=== PATIENT | female | born 1980 | race Caucasian/White ===

== ENCOUNTER 2022-09-03 00:01 | Inpatient (IN) | payer BC, MEDICAID ==
[~2022-09-03] VITALS: Ht 165.1 cm; Wt 59.0 kg
[~2022-09-03 00:01] MED LIST: PREN1TAB81 PO
[2022-09-03] MEDS ORDERED: LORAZEPAM 2 MG/1 ML VIAL ONE ×2 (00:11→00:42)
[2022-09-03] MEDS ORDERED: IV NORMAL SALINE 1000 ML BAG IV ONE (00:15)
[2022-09-03] MEDS ORDERED: LORAZEPAM 2 MG/1 ML VIAL IV ONE ×2 (00:15)
[2022-09-03 00:25] LABS: HEMATOCRIT 41.3 % (31.2-41.9); MEAN CORPUSCULAR HEMOGLOBIN 30.2 uug (24.7-32.8); PLATELET COUNT (AUTO) 306 K/uL (179-408)
[2022-09-03 00:42] LABS: *BILIRUBIN,URIN NEGATIVE (NEGATIVE); *BLOOD, URINE 2+ (NEGATIVE); *COLOR,URINE YELLOW (YELLOW); *KETONES,URINE NEGATIVE (NEGATIVE); *UROBILINOGEN,URINE 0.2 E.U./dl (NORMAL); LEUKOCYTE ESTERASE ,URINE 2+ (NEGATIVE); NITRITE, URINE NEGATIVE (NEGATIVE); UGLUCOSE NEGATIVE (NEGATIVE)
[2022-09-03 00:51] LABS: ETHANOL 195 MG/DL (0-0)
[2022-09-03 00:52] LABS: ALANINE AMINOTRANSFERASE 33 U/L (14-59); ALKALINE PHOSPHATASE 77 U/L (50-136); ASPARTATE AMINOTRANSFERASE 27 U/L (15-37); BILIRUBIN,DIRECT 0.1 mg/dL (0.0-0.2); BILIRUBIN,TOTAL 0.2 mg/dL (0.2-1.0); CARBON DIOXIDE 24 mmol/L (21-32); CHLORIDE 103 mmol/L (98-107); CREATINE KINASE, TOTAL 40 U/L (26-192); CREATININE 0.8 mg/dL (0.6-1.3); GLUCOSE 110 mg/dL (74-106); POTASSIUM 3.2 mmol/L (3.5-5.1); TOTAL PROTEIN, SERUM 8.2 g/dL (6.4-8.2); UREA NITROGEN, BLOOD 10 mg/dL (7-18)
[2022-09-03 00:53] LABS: *AMPHETAMINE, URINE NEGATIVE (NEGATIVE); *CANNABINOID, URINE NEGATIVE (NEGATIVE); *COCCAINE, URINE NEGATIVE (NEGATIVE); *PHENCYCLIDINE SCREEN,URINE NEGATIVE (NEGATIVE)
[2022-09-03 00:56] LABS: ACETAMINOPHEN < 2.0 ug/mL (10-30)
[2022-09-03 00:59] LABS: THYROID STIMULATING HORMONE 5.353 mIU/mL (0.358-3.740)
[2022-09-03 01:01] LABS: *CLARITY,URINE SLIGHTLY CLOUDY (CLEAR)
[2022-09-03 01:04] LABS: RBC,URINE 50-80 /HPF (0-3); WBC,URINE 20-50 /HPF (0-3)
[2022-09-03 01:05] LABS: BACTERIA,URINE MANY /HPF (NONE SEEN); SQUAMOUS EPITHELIAL CELL,UR FEW /HPF (NONE SEEN)
[2022-09-03] MEDS ORDERED: CEFTRIAXONE /D5W 50ML IVPB **ER PYXIS IV ONE (01:27)
[2022-09-03] MEDS ORDERED: CEFTRIAXONE 1 G in IV DEXTROSE 5% 50 ML IV ONE (01:30)
[2022-09-03] MEDS ORDERED: POTASSIUM CHLORIDE 20 MEQ TAB.PRT.SR PO ONE (02:00)
[2022-09-03] MEDS ORDERED: MAGNESIUM SULFATE/D5W 100 ML ONE ×2 (02:03→02:11)
[2022-09-03] MEDS ORDERED: POTASSIUM CHLORIDE 20 MEQ TAB.PRT.SR ONE (02:03)
[2022-09-03] MEDS: MAGNESIUM SULFATE/D5W 100 ML IV SCH ×2 (02:15→03:00)
[2022-09-03] MEDS ORDERED: IV NS 1000 ML 1,000 ML IV ONE (04:30)
[2022-09-03] MEDS: POTASSIUM CHLORIDE 50 ML IV SCH ×2 (05:00→06:50)
[2022-09-03] MEDS ORDERED: POTASSIUM CHLORIDE 50 ML ONE ×2 (05:24→05:51)
[2022-09-03] MEDS ORDERED: OMEP40CA21 PO (06:02)
[2022-09-03] MEDS ORDERED: CITA10TA17 PO (06:02)
[2022-09-03] MEDS ORDERED: ONDANSETRON 4 MG/2 ML VIAL IV PRN (06:15)
[2022-09-03] MEDS ORDERED: REMEDY ESSENTIAL ZINC PASTE 113 GM TP PRN (06:15)
[2022-09-03] MEDS ORDERED: ACETAMINOPHEN 325 MG TABLET PO PRN (06:15)
[2022-09-03 06:32] LABS: HEMATOCRIT 35.3 % (31.2-41.9); MEAN CORPUSCULAR HEMOGLOBIN 30.1 uug (24.7-32.8); MEAN CORPUSCULAR VOLUME 92.6 fL (75.5-95.3); PLATELET COUNT (AUTO) 234 K/uL (179-408)
[2022-09-03 06:54] LABS: BILIRUBIN,TOTAL 0.1 mg/dL (0.2-1.0); CREATININE 0.6 mg/dL (0.6-1.3); MAGNESIUM 2.1 mg/dL (1.8-2.4); PHOSPHOROUS 2.9 mg/dL (2.5-4.9); POTASSIUM 4.3 mmol/L (3.5-5.1); TOTAL PROTEIN, SERUM 6.4 g/dL (6.4-8.2)
[2022-09-03 07:02] LABS: THYROID STIMULATING HORMONE 2.895 mIU/mL (0.358-3.740)
[2022-09-03 08:02] VITALS: BP 98/59
[2022-09-03] MEDS: levoFLOXacin 500 MG/D5W 500 MG in PREMIXED 1 EACH IV SCH (09:56)
[2022-09-03] MEDS: PANTOPRAZOLE SODIUM 40 MG VIAL IV SCH (09:56)
[2022-09-03] MEDS: IV D5 1/2 NS 1000 ML 1,000 ML IV PRN ×2 (09:59→18:44)
[2022-09-03 12:00] VITALS: BP 104/60
[2022-09-03 16:00] VITALS: BP 104/59
[2022-09-03 20:00] VITALS: BP 99/60
[2022-09-04] VITALS: BP 97/55
[2022-09-04] MEDS: IV D5 1/2 NS 1000 ML 1,000 ML IV PRN ×3 (03:35→22:40)
[2022-09-04 06:37] VITALS: BP 100/59
[2022-09-04 07:50] LABS: HEMATOCRIT 35.5 % (31.2-41.9); MEAN CORPUSCULAR HEMOGLOBIN 30.5 uug (24.7-32.8); MEAN CORPUSCULAR VOLUME 92.2 fL (75.5-95.3); PLATELET COUNT (AUTO) 237 K/uL (179-408)
[2022-09-04 08:00] VITALS: BP 95/52
[2022-09-04 08:09] LABS: CREATININE 0.6 mg/dL (0.6-1.3); POTASSIUM 3.8 mmol/L (3.5-5.1)
[2022-09-04] MEDS: levoFLOXacin 500 MG/D5W 500 MG in PREMIXED 1 EACH IV SCH (09:02)
[2022-09-04] MEDS: PANTOPRAZOLE SODIUM 40 MG VIAL IV SCH (09:05)
[2022-09-04 13:00] VITALS: BP 101/57
[2022-09-04] MEDS: CITALOPRAM 10 MG TABLET PO SCH (14:27)
[2022-09-04 15:57] VITALS: BP 112/61
[2022-09-04 19:40] VITALS: BP 120/73
[2022-09-05] MEDS ORDERED: PANTOPRAZOLE SODIUM 40 MG TABLET.DR PO SCH (07:00)
[2022-09-05] MEDS: IV D5 1/2 NS 1000 ML 1,000 ML IV PRN (07:44)
[2022-09-05] MEDS: levoFLOXacin 500 MG/D5W 500 MG in PREMIXED 1 EACH IV SCH (08:44)
[2022-09-05] MEDS: CITALOPRAM 10 MG TABLET PO SCH (08:44)
[2022-09-05] MEDS ORDERED: LEVO500T90 PO (10:29)
[2022-09-05 11:32] VITALS: BP 108/68
[2022-09-05] MEDS ORDERED: CITA10TA17 PO (14:16)
== END 2022-09-05 13:35 | disposition home or self-care (01) | DRG 817 ==
LOC: ER 00:09 → TELE3 05:45 → MEDSURG3 09-04 10:16
PROVIDERS: ADMIT Registered Nurse; ATTEND Internal Medicine
DX: T43.222A Poisoning by selective serotonin reuptake inhibitors, intentional self-harm, initial encounter (principal); G92.8 Other toxic encephalopathy; F33.2 Major depressive disorder, recurrent severe without psychotic features; E87.6 Hypokalemia; F43.10 Post-traumatic stress disorder, unspecified; F10.129 Alcohol abuse with intoxication, unspecified; N39.0 Urinary tract infection, site not specified; Y92.039 Unspecified place in apartment as the place of occurrence of the external cause; Z78.1 Physical restraint status; Z86.2 Personal history of diseases of the blood and blood-forming organs and certain disorders involving the immune mechanism; Z98.84 Bariatric surgery status; Z90.49 Acquired absence of other specified parts of digestive tract; Z88.0 Allergy status to penicillin; Z86.69 Personal history of other diseases of the nervous system and sense organs; Y90.7 Blood alcohol level of 200-239 mg/100 ml; T51.0X2A Toxic effect of ethanol, intentional self-harm, initial encounter
CPT/HCPCS: 36415; 71045; 83735; 84100; 84443; 84484; 85025; 93005; A4663; C9113; G0378; G0480; J0696; J1956; J2060; J3475; J3480; J7040